=== PATIENT | male | born 1970 | race Caucasian/White ===

== ENCOUNTER 2016-10-05 22:26 | Emergency (ER) | payer BC ==
[~2016-10-05] VITALS: Ht 177.8 cm; Wt 77.3 kg
[2016-10-05 22:28] VITALS: BP 127/74; PULSE 91; RESP 14; TEMP 97.8; O2SAT 98
--- NOTE | 2016-10-05 22:39 | PD ---
HPI Chief Complaint: Laceration/Skin Injury Time Seen by Provider: 22:30 Travel History International Travel<30 days: No Contact w/Intl Traveler<30days: No Traveled to known affect area: No History of Present Illness HPI [id number] male presents for evaluation of a laceration to left hand. It was sustained 1 hour prior to arrival and the patient was cutting a wire and the knife caused a laceration on the dorsal left hand. He has had some bleeding , mild pain. Denies any numbness tingling or range of motion limitation distal to the injury site. Last tetanus vaccination within 5 years. No other complaints. [facility] Social History Alcohol Use: Yes Tobacco Use: No Allergies-Medications (Allergen,Severity, Reaction): Coded Allergies: No Known Allergies (Unverified , 10/05/16) Review of Systems Musculoskeletal: Positive: Pain, No: Limited ROM Physical Exam Narrative GENERAL: Well-developed well-nourished male in no acute distress SKIN: Warm and dry. 1 cm laceration on the dorsal aspect of the left hand between the first and second digits. Extremities: Skin as noted above. Distal sensation is intact, capillary refill is intact, distal range of motion and strength is intact. Data Data Last Documented VS Vital Signs Date Time Temp Pulse Resp B/P Pulse Ox O2 Delivery O2 Flow Rate FiO2 10/05/16 22:28 97.8 91 14 127/74 98 Room Air Orders Lidocai-Epi 1%-1:100,000 Inj (Xylocaine- (10/05/16 22:45) MDM Medical Decision Making Medical Screen Exam Complete: Yes Emergency Medical Condition: Yes Medical Record Reviewed: Yes Differential Diagnosis Laceration, puncture wound, tissue avulsion Narrative Course The patient has a minor laceration to the dorsal left hand, this was repaired with sutures, he verbally consented. Local wound care provided. He is stable for discharge. Procedures Procedure Narrative LACERATION LOCATION: Dorsal left hand LENGTH: 1 cm NUMBER OF STITCHES/SAAD 3 REPAIR: The area of the laceration was prepped with Betadine and sterilely draped. The laceration was infiltrated with 1% lidocaine with epinephrine. The wound was copiously irrigated and explored without evidence of foreign body , tendon injury or neurovascular injury. The wound was closed using 5-0 proline simple interrupted. This was a single layer repair. A sterile dressing was applied. The patient was advised to keep the dressing clean and dry. Patient tolerated the procedure well. Diagnosis Primary Impression: Laceration of left hand Qualified Code: S61.412A - Laceration of left hand, initial encounter Additional Instructions: Wash the wound daily with soap and water and apply antibiotic cream and clean bandages. Return in 10-14 days for suture removal. Med/Other Pt SpecificInfo: Wound Care Disposition: 01 DISCHARGE HOME Condition: Stable Elder Cooper Oct 05, 2016 22:39
[2016-10-05] MEDS ORDERED: LIDOCAINE 1%/EPINEPHrine 1:100,000 SOLN 20 ML VIAL INFIL ONE (22:45)
== END 2016-10-05 23:58 | disposition home or self-care (01) ==
LOC: NEPB 22:26
DX: S61.412A Laceration without foreign body of left hand, initial encounter (principal); W26.0XXA Contact with knife, initial encounter; Y93.89 Activity, other specified
CPT/HCPCS: 12001